=== PATIENT | female | born 1945 | race Caucasian/White ===

== ENCOUNTER 2022-05-09 14:13 | Emergency (ER) | payer MEDICARE, OTHER, SELFPAY ==
[2022-05-09] VITALS (14 sets, daily range): BP systolic 134–167; BP diastolic 60–80; PULSE 70–71; RESP 20; TEMP 36.6; O2SAT 96–99; BMI 38.9
--- NOTE | 2022-05-09 14:37 | DI.RAD.S_ITS ---
PROCEDURE: XR ANKLE RT MIN 3V INDICATIONS: fall/pain TECHNIQUE: 3 views of the ankle were acquired. COMPARISON: None. FINDINGS: Bones: On 1 image, minimal fragmentation can be seen involving the lateral aspect of the hindfoot. Ankle mortise is normally aligned. No suspicious bony lesions. Generalized degenerative changes are seen. The talar dome demonstrates no sonia abnormality. A moderate plantar calcaneal spur is seen. Soft tissues: Generalized soft tissue swelling is seen. IMPRESSION: On 1 image, there is fragmentation involving the lateral aspect of the hindfoot, with the appearance of an acute fracture. Please consider a follow-up ankle CT for further evaluation. Dictated by: Kristofer Parra M.D. on 05/09/2022 at 14:48 Approved by: Kristofer Parra M.D. on 05/09/2022 at 14:50
--- NOTE | 2022-05-09 16:48 | DI.RAD.S_ITS ---
PROCEDURE: XR KNEE RT 3V INDICATIONS: pain TECHNIQUE: 3 views of the knee were acquired. COMPARISON: [facility], CR, XR ANKLE RT MIN 3V, 05/09/2022, 14:49. FINDINGS: Bones: No fractures or dislocations. No suspicious bony lesions. Left knee arthroplasty hardware is seen. No definite findings of hardware failure or hardware loosening are seen. Soft tissues: There is a small joint effusion. No suspicious soft tissue calcifications. IMPRESSION: Unremarkable left knee arthroplasty hardware. Dictated by: Kristofer Parra M.D. on 05/09/2022 at 16:37 Approved by: Kristofer Parra M.D. on 05/09/2022 at 16:37
--- NOTE | 2022-05-09 18:24 | ED.GENADULT ---
HPI - General Adult General Chief complaint: Extremity Injury, Lower Stated complaint: fell twisted RT foot Time Seen by Provider: 05/09/22 18:15 Source: patient Mode of arrival: Wheelchair History of Present Illness HPI narrative: 68-year-old woman visiting the [facility] from [place] with a history of Parkinson's disease, gait disturbance and gait instability, history of a VFib arrest after an MRI and 1002 with subsequent pacer defibrillator, prior pulmonary emboli currently on warfarin who stumbled going down a step lost her balance and up falling with her right foot bent under her. It has been swollen, bruised and difficult to bear weight since then. The original injury was 48 hours ago. She has bilateral knee replacements and knees are not bothering her at this point she complains of no other injury. She notes that she has been having some minor cognitive difficulties, her mobility and balance have been worsening over the last number of months to years, she denies fever, cough, chills, palpitations, defibrillator discharge, abdominal pain, vomiting, diarrhea, skin changes, back pain, abdominal pain, dysuria. Related Data Previous Rx's Medication Instructions Recorded oxycodone-acetaminophen 5 mg-325 1 tab PO Q6H PRN pain #14 tabs 05/09/22 mg tablet Allergies Allergy/AdvReac Type Severity Reaction Status Date / Time latex Allergy Rash Verified 05/09/22 14:31 Review of Systems Review of Systems Narrative: Remainder of complete review of systems is otherwise unremarkable except for that included in the HPI. Patient History Medical History (Updated 05/09/22 @ 21:12 by Jayde Waller MD) Parkinsons Presence of combination internal cardiac defibrillator (ICD) and pacemaker Surgical History (Updated 05/09/22 @ 18:33 by Jayde Waller MD) History of knee replacement procedure of left knee History of knee replacement procedure of right knee Social History Smoking Status: Never smoker Smoking Status: Never smoker alcohol intake frequency: holidays/special occasions only Substance Use Type: does not use Exam Initial Vital Signs Initial Vital Signs: Vital Signs Temperature 97.8 F 05/09/22 14:31 Pulse Rate 70 05/09/22 14:31 Respiratory Rate 20 05/09/22 14:31 Blood Pressure 134/60 05/09/22 14:31 Pulse Oximetry 97 05/09/22 14:31 Oxygen Delivery Method 05/09/22 14:31 General: Healthy appearing, in no acute distress. Able to give a complete and coherent history. Well-nourished well-developed HEENT: Moist mucous membranes, normal sclera with reactive pupils, Respiratory: Lungs are clear to auscultation, no wheezing no rales no rhonchi. Full and symmetrical air movement Cardiac: 3/6 murmur, no bruits Abdomen: Soft, nontender, good bowel tones, no flank pain Skin: Warm and dry, no rashes Neurologic: Grossly neurologically intact with no obvious asymmetries or abnormalities Extremities: Right foot and ankle with contusion, edema tenderness over the posterior portion of the heel and Achilles tendon without obvious Achilles tendon rupture. She is neurovascularly intact. She is not able to bear weight on the foot. Psych: Cooperative, appropriate insight and affect Procedures Orthopedic Splinting/Casting Right lower extremity: Time of procedure: 21:14 Side: right Lower Extremity Injury Location: ankle and foot Lower Extremity Immobilizer: posterior splint Post splinting neuro exam: intact Post splinting vascular exam: intact Placed by: Nursing Course Orders Ordered: ED Orders 05/09/22 14:37 XR ankle RT min 3V Stat 05/09/22 16:48 XR knee RT 3V Stat 05/09/22 18:40 CT LE RT wo con Stat Discontinued Medications Oxycodone/Acetaminophen (Oxycodone/Acetaminophen 5/325 Tablet) 1 tab PO NOW ONE Stop: 05/09/22 18:42 Last Admin: 05/09/22 18:46 Dose: 1 tab Documented By: ANIVAL Vital Signs Vital signs: Vital Signs - 8 hr 05/09/22 14:31 05/09/22 16:44 05/09/22 16:45 Temperature 97.8 F Pulse Rate 70 70 70 Respiratory Rate 20 Blood Pressure 134/60 Pulse Oximetry 97 99 99 Oxygen Delivery Method Room Air 05/09/22 16:45 05/09/22 17:30 05/09/22 18:00 Temperature Pulse Rate 70 70 Respiratory Rate Blood Pressure 135/66 Pulse Oximetry 99 99 Oxygen Delivery Method 05/09/22 18:27 05/09/22 18:27 05/09/22 18:30 Temperature Pulse Rate 70 70 Respiratory Rate Blood Pressure 141/68 H Pulse Oximetry 99 99 Oxygen Delivery Method 05/09/22 19:00 05/09/22 19:30 05/09/22 20:00 Temperature Pulse Rate 70 71 70 Respiratory Rate Blood Pressure Pulse Oximetry 98 97 98 Oxygen Delivery Method 05/09/22 20:12 05/09/22 20:12 Temperature Pulse Rate 70 Respiratory Rate Blood Pressure 162/79 H Pulse Oximetry 96 Oxygen Delivery Method Medical Decision Making Imaging Data Xray ankle: Radiologist's Impression: FINDINGS:? ? Bones:? On 1 image, minimal fragmentation can be seen involving the lateral aspect of the hindfoot.? ? Ankle mortise is normally aligned.? No suspicious bony lesions.? Generalized degenerative changes are seen. The talar dome demonstrates no sonia abnormality.? A moderate plantar calcaneal spur is seen.? ? Soft tissues:? Generalized soft tissue swelling is seen. ? ? IMPRESSION:? On 1 image, there is fragmentation involving the lateral aspect of the hindfoot, with the appearance of an acute fracture. ? Please consider a follow-up ankle CT for further evaluation. ? Dictated by: Kristofer Parra M.D. on 05/09/2022 at 14:48 ? ? XR knee: Radiologist's Impression: FINDINGS:? ? Bones:? On 1 image, minimal fragmentation can be seen involving the lateral aspect of the hindfoot.? ? Ankle mortise is normally aligned.? No suspicious bony lesions.? Generalized degenerative changes are seen. The talar dome demonstrates no snoia abnormality.? A moderate plantar calcaneal spur is seen.? ? Soft tissues:? Generalized soft tissue swelling is seen. ? ? IMPRESSION:? On 1 image, there is fragmentation involving the lateral aspect of the hindfoot, with the appearance of an acute fracture. ? Please consider a follow-up ankle CT for further evaluation. ? Dictated by: Kristofer Parra M.D. on 05/09/2022 at 14:48 ? ? CT foot: Radiologist's Impression: FINDINGS:? Image quality:? Excellent.? ? Cortical irregularity is present at the anterolateral aspect of the calcaneus near the articulation with the cuboid corresponding to the finding on recent radiograph, consistent with an acute comminuted minimally displaced fracture.? There is adjacent soft tissue edema. ? Cortical irregularity at the distal fibula below the level of the tibial plafond and is suspicious for an acute minimally displaced fracture (). ? Pronounced polyarticular midfoot degenerative changes and degenerative changes of the ankle. ? ? IMPRESSION:? 1. Minimally displaced acute comminuted fracture anterolateral calcaneus near its articulation with the cuboid. 2. Findings suspicious for an acute minimally displaced lateral malleolus fracture. ? ? Dictated by: Johnson Clark M.D. on 05/09/2022 at 20:14 ? ? MDM Narrative Medical decision making narrative: 76-year-old woman with history of Parkinson's who fell 2 days ago and has sustained a displaced acute comminuted calcaneal fracture and possibly lateral malleolus fracture. She is visiting and planning to return home tomorrow. Pain was well controlled with a single Percocet. She is placed in a posterior short-leg splint and instructed to toe touch to minimal weightbear only. Because of her Parkinson's disease crutches are not going to be a safer reasonable alternative for her. She does have a walker available and her daughters believe that they can also help find a wheelchair. They will arrange for orthopedic consultation when she is home. Discs and printed reports are sent with her to share with the orthopedic doctor. Questions are answered she is safe for home discharge Discharge Plan Departure Patient Disposition: Home Clinical Impression: Closed right calcaneal fracture Qualifiers: Encounter type: initial encounter Calcaneus location: unspecified portion of calcaneus Fracture alignment: displaced Qualified Code(s): S92.001A - Unspecified fracture of right calcaneus, initial encounter for closed fracture Fracture of malleolus of right ankle Qualifiers: Encounter type: initial encounter Fracture type: closed Qualified Code(s): S82.891A - Other fracture of right lower leg, initial encounter for closed fracture Instructions: DI for Ankle Fracture, DI for Foot Fracture Activity Restrictions/Additional Instructions: Thank you for coming in today You did break your foot. It is the heel bone itself and probably a tiny piece of the outer edge of the ankle as well. You have been placed in a splint and need to be minimally weight-bearing. You will need the orthopedic doctor that you follow-up with at home to see and evaluate you for this emergency department visit sometime next week. I do encourage you to consider finding a wheelchair, this will likely be the safest mode of transport for you given your instability from her Parkinson's disease For pain, you can use Tylenol and for severe pain you can use a single Percocet. Percocet has oxycodone, a narcotic. If you choose to use narcotic, please make sure you take a stool softener. Narcotics will absolutely make you constipated. I have given you printed reports of the x-rays as well as a disc containing the x-rays free to share with the orthopedic surgeon. Please schedule an appointment with your orthopedic doctor for next week. If you find you are having new or worsening symptoms, please return to the ER Prescriptions: New oxycodone-acetaminophen 5-325 mg tablet 1 tab PO Q6H PRN (Reason: pain) Qty: 14 0RF
--- NOTE | 2022-05-09 18:40 | DI.CT.S_ITS ---
PROCEDURE: CT LE RT WO CON INDICATIONS: foot ankle injury TECHNIQUE: Noncontrast 3-mm axial sections acquired from the distal tibial shaft to the talar dome, with coronal and sagittal reformats.. COMPARISON: [facility], CR, XR ANKLE RT MIN 3V, 05/09/2022, 14:49. [facility], CR, XR KNEE RT 3V, 05/09/2022, 16:56. FINDINGS: Image quality: Excellent. Cortical irregularity is present at the anterolateral aspect of the calcaneus near the articulation with the cuboid corresponding to the finding on recent radiograph, consistent with an acute comminuted minimally displaced fracture. There is adjacent soft tissue edema. Cortical irregularity at the distal fibula below the level of the tibial plafond and is suspicious for an acute minimally displaced fracture (/). Pronounced polyarticular midfoot degenerative changes and degenerative changes of the ankle. IMPRESSION: 1. Minimally displaced acute comminuted fracture anterolateral calcaneus near its articulation with the cuboid. 2. Findings suspicious for an acute minimally displaced lateral malleolus fracture. Dictated by: Johnson Clark M.D. on 05/09/2022 at 20:14 Approved by: Johnson Clark M.D. on 05/09/2022 at 20:28
[2022-05-09] MEDS: OXYCODONE/ACETAMINOPHEN 5/325 TABLET 1 TAB PO (18:46)
[2022-05-09] MEDS: OXYCODONE/APAP 5/325 PREPACK 1 BOTTLE MISC (21:18)
== END 2022-05-09 21:25 | disposition home or self-care (01) ==
PROVIDERS: Emergency Provider Emergency Medicine
DX: S92.001A Unspecified fracture of right calcaneus, initial encounter for closed fracture (principal); S82.891A Other fracture of right lower leg, initial encounter for closed fracture; W18.30XA Fall on same level, unspecified, initial encounter; G20 Parkinson's disease; Z95.5 Presence of coronary angioplasty implant and graft; Z79.01 Long term (current) use of anticoagulants
CPT/HCPCS: 29515; 73562; 73610; 73700; 99284